=== PATIENT | female | born 1965 ===

== ENCOUNTER → 2018-09-03 | Outpatient (CLI) | payer OTHER ==
[~2018-09-03] MED LIST: ASCO500T2 PO; CALC500T54 PO; CHOL100013 PO; FERR-36 PO; GABA300C18 PO; MULT1TAB52 PO
--- NOTE | 2018-09-04 04:27 | PAIN ---
DATE OF SERVICE: 09/03/2018 INITIAL CONSULTATION FOR PAIN CLINIC CHIEF COMPLAINT: Neck and left upper extremity pain. SECONDARY COMPLAINT: Low back and bilateral lower extremity pain. HISTORY OF PRESENT ILLNESS: The patient is a 52-year-old female who presents with history of pain since 2014 gradually increasing and getting worse over time, not any specific injury or action that she is aware of specifically, but has had pain in the base of the neck, left upper extremity radiating to the arm and hand with some numbness and tingling with fatigability, becoming more constant, sharp and stabbing over time. The patient reports physical training, participating in organized company exercises have exacerbated the pain over the years as well and in the low back and bilateral lower extremities. The patient reports her chief complaint; however, is the neck and left upper extremity at this time. The patient reports the pain is intermittent and changes during the day with tingling, numbness, radiating, burning, stabbing, constant, becoming more sharp, also disturbs from sleep at least once or twice a night between her neck and her low back. The patient reports no loss of bowel or bladder control, but does affect her ability to walk with the low back pain. She has had physical therapy, which was helpful initially, but not long lasting. She is still doing some stretching and strengthening exercises from the therapy as well. The patient reports no loss of motor function, but significant fatigability. She did have cervical spine MRI showing mild spinal canal stenosis at C6-C7 with eccentric disk bulge to the left with mild flattening of the anterior thecal sac and mild spinal canal stenosis with minimal diffuse disk bulge at C5-C6 as well. Lumbar spine showing disk bulge and desiccation space at L3-L4, L4-L5 and L5-S1, mostly L3-L4 and L4-L5 with bilateral neural foraminal stenosis at L4-L5 and more left-sided L3 abutment of the nerve root at the L3-L4 level. The patient rates her disability rate from 0-10, 10 being the worst as a 5/10 with home responsibilities, 7 with recreation, 2 with social activity, 6 with occupation, 0 with sexual behavior, 5 with self-care, 1 to 2 with life support activities. The patient reports no loss of motor function, but significant fatigability of the left arm and the bilateral lower extremities especially with walking. PAST MEDICAL HISTORY: The patient's past medical history is significant for hearing loss, hearing aids, wears glasses and history of hepatitis A. PREVIOUS SURGERY: Include fractured wrist in 2003 on the right. CURRENT MEDICATIONS: Include multivitamins, calcium, gabapentin, iron sulfate, vitamin D and also vitamin C. ALLERGIES: The patient has no known drug allergies. FAMILY HISTORY: Significant for no major medical problems or conditions that she lifts. SOCIAL HISTORY: The patient does not drink alcohol, does not smoke and does not use any illegal or recreational drugs. She is single. 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 REVIEW OF SYSTEMS: The patient's review of systems is positive for those items mentioned in the history of present illness. All systems reviewed and otherwise negative. It is complete, full and well documented on the patient's chart. PHYSICAL EXAMINATION: VITAL SIGNS: The patient's blood pressure is 118/68, pulse is 71, respirations are 18, temperature is 98.4 degrees Fahrenheit, height is 5 feet 6 inches and weighs 184 pounds. GENERAL: The patient is awake, alert, oriented, appropriate, very pleasant demeanor. HEENT: Head shows normocephalic and atraumatic. Extraocular movements are intact and symmetrical. Oral cavity: Mucous membranes are moist and pink. Dentition is intact. NECK: Shows anterior throat is supple without palpable lymphadenopathy noted. Swallow reflex is symmetrical. CHEST: Shows normal on inspection. Breath sounds are clear to auscultation bilaterally. HEART: Shows S1 and S2 clear. No murmurs are auscultated. ABDOMEN: Soft, nontender and nondistended. No palpable organomegaly is noted. No rebound or guarding demonstrated. MUSCULOSKELETAL: Back shows spine grossly in the midline. Normal appearing thoracic kyphosis, cervical lordotic curvature and thoracic and lumbar lordotic curvature. Cervical paraspinous muscle shows symmetrical on inspection. On palpation shows some moderate tenderness diffusely in the inferior aspect of the cervical paraspinous muscle on the left greater than right, also into the superior medial trapezius, but without trigger points and without radiation. The patient has good rotational motion of the cervical spine both laterally greater than 45 degrees closer to 90 degrees right and left as well as full extension, full forward flexion without significant pain reported. The patient's upper extremities show deep tendon reflexes at 2+ in the biceps and triceps tendons and are equal. Motor exam shows 5/5 timber feller strength, bicep and tricep flexion and equal bilaterally. The patient's low back shows lumbar paraspinous muscles symmetrical on inspection. On palpation shows some mild diffuse tenderness throughout the upper, middle, lower distribution of the paraspinous muscles bilaterally, but only diffusely without radiation, without trigger points, without atrophy or hypertrophy. The patient's lower extremities show deep tendon reflexes 1+ in the patellar and tendo-calcaneus tendons. Motor exam is strong with 5/5 dorsiflexion and extension. Straight leg raising is noted to be negative bilaterally. Peripheral pulses are 1+ posterior tibia. No peripheral edema is noted. 2+ radial without edema. She is able to stand, stand on her toes, walks without difficulty without any assistive devices. SKIN: The patient's skin shows warm and dry, good turgor. No edema. No sores, rashes or bruising throughout. IMPRESSION: 1. This is a 52-year-old female with a long history approximately 4 years, pain in the base of the neck, shoulder and left upper extremity in a radicular fashion. 2. Low back pain with bilateral lumbar radicular symptoms. 3. MRI scan of the cervical and lumbar spines as noted. PLAN: Options were discussed with the patient including conservative medical management, physical therapy and interventional techniques. She would like to pursue interventional techniques as she is doing physical therapy, stretching and strengthening on her own without significant long-term improvement. We discussed a cervical epidural steroid injection using description as well as anatomical models to describe the procedure. The patient will wait for preauthorization with her insurance provider. We have her return for cervical epidural steroid injection later this week. In the meantime, the patient will continue with strengthening and stretching exercises as normal and will have her followup as scheduled. GUI MCDONALD MD DR: KEVIN/ga JOB#: [id number] / [id number]
== END | disposition home or self-care (01) ==
LOC: PNCL 13:36
PROVIDERS: ATTEND Anesthesiology
DX: M54.2 Cervicalgia (principal); M54.5 Low back pain; M25.512 Pain in left shoulder; M79.604 Pain in right leg; M79.605 Pain in left leg
CPT/HCPCS: G0463

== ENCOUNTER → 2018-09-06 | Outpatient (CLI) | payer OTHER ==
[~2018-09-06] MED LIST changes: +IOHEXOL 180 MG/ML 10 ML VIAL. ONE; +methylPREDNISolone ACETATE 40 MG/ML VIAL. ONE; +methylPREDNISolone ACETATE 80 MG/ML VIAL. ONE
--- NOTE | 2018-09-07 03:51 | PAIN ---
DATE OF SERVICE: 09/06/2018 DIAGNOSES: 1. Cervical radiculopathy with cervical degenerative disk disease. 2. Lumbar radiculopathy with lumbar degenerative disk disease. HISTORY OF PRESENT ILLNESS: The patient is a 52-year-old female who returns for followup status post initial evaluation and preauthorization for cervical epidural steroid injection. The patient reports still significant pain in the base of the neck and left upper extremity as it was previously, unchanged from evaluation a few days previous. The patient is waiting for preauthorization. She has obtained this now and would like to proceed with cervical epidural steroid injection. The patient reports the pain is a 10 on a scale of 10 at its worst, 7-10 on average and is 5 at its least and is a 7 today. The patient reports no new motor or sensory deficits. No new changes or other findings. PHYSICAL EXAMINATION: VITAL SIGNS: The patient's blood pressure is 131/70, pulse is 67, respirations are 18, temperature is 98.0 degrees Fahrenheit, height is 5 feet 7 inches, weighs 184 pounds. GENERAL: The patient is awake, alert, oriented, appropriate, very pleasant demeanor. HEENT: Shows normocephalic, atraumatic. Extraocular movements are intact and symmetrical. Oral cavity: Mucous membranes moist and pink. Dentition is intact. NECK: Shows anterior throat supple without palpable lymphadenopathy noted. Swallow reflex is symmetrical. CHEST: Shows normal on inspection. Breath sounds are clear to auscultation bilaterally. HEART: Shows S1, S2 clear. ABDOMEN: Soft, nontender, nondistended. BACK: Shows spine grossly in the midline. Cervical paraspinous muscle shows symmetrical on inspection. With palpation shows some [id number] tenderness in the inferior aspect of the cervical paraspinous musculature, slightly more on the left trapezius, superior medial than the right. The patient has good rotational motion of cervical spine both laterally greater than 45 degrees, closer to 90 degrees right and left lateral as well as full extension, full forward flexion without significant pain reported. EXTREMITIES: The patient's upper extremities show deep tendon reflexes at 2+ in the biceps and triceps tendons. Motor exam is strong with 5/5 business account specialist strength, bicep and tricep flexion. Peripheral pulses are 1+ posterior tibia. No peripheral edema is noted. Options were discussed with the patient. The patient's old chart was reviewed as was her current medication regimen updated. Current review of systems is updated today as well. We will proceed with a cervical epidural steroid injection today with fluoroscopic guidance. Risks were again discussed including, but not limited to bleeding, infection, possibility of epidural hematoma, subsequent neurologic compromise, dural puncture, headaches, spinal cord and/or nerve damage, side effects of steroid medication and poor results regarding pain control. The patient understands and wished to proceed. The patient will return to the clinic in approximately 2 weeks for followup, was counseled on return appointment, activity level and side effects to be aware of. DIAGNOSES: Cervical radiculopathy with cervical degenerative disk disease. PROCEDURE: Cervical epidural steroid injection, translaminar approach at C6-C7 level using C-arm fluoroscopic guidance under sterile prep and drape using local anesthetic. MEDICATION INJECTED: A total of 120 mg Depo-Medrol plus 5 mL of preservative-free normal saline, and 2 mL of Isovue for contrast. CONDITION AT DISCHARGE: Stable. The patient tolerated procedure well, had no complications. GUI MCDONALD MD DR: KEVIN/ga JOB#: [id number] / [id number]
== END | disposition home or self-care (01) ==
LOC: PNCL 13:11
PROVIDERS: ATTEND Anesthesiology
DX: M50.123 Cervical disc disorder at C6-C7 level with radiculopathy (principal); M51.16 Intervertebral disc disorders with radiculopathy, lumbar region
CPT/HCPCS: 62321; J1030; J1040; Q9965

== ENCOUNTER → 2018-09-28 | Outpatient (CLI) | payer OTHER ==
--- NOTE | 2018-09-29 00:23 | PAIN ---
DATE OF SERVICE: 09/28/2018 DIAGNOSES: 1. Cervical radiculopathy with cervical degenerative disk disease. 2. Lumbar radiculopathy with lumbar degenerative disk disease. HISTORY OF PRESENT ILLNESS: The patient is a 52-year-old female who returns for followup status post cervical epidural steroid injection x 1. The patient reports about a near 100% improvement from the first week and then in the next week the pain began to return slightly, but still about 75-80% improvement overall in the base of the neck and shoulders, again some pain in the left upper extremity, but very minimal compared to what it was previously. The patient reports he has been sleeping better at night, increasing her activity, lifting arms, working out. General movement was improved significantly since her injection. The patient reports her pain is an 8 on a scale of 10 at its worst, 4 on average, 4 at its least and is 4 today. The patient reports it is aching and becoming more constant and noticeable with time and with activity. The patient reports no new motor or sensory deficits or other complaints. PHYSICAL EXAMINATION: VITAL SIGNS: The patient's blood pressure is 115/76, pulse 84, respirations 16, temperature is 98.2 degrees Fahrenheit, weight is 183 pounds. GENERAL: The patient is awake, alert, oriented, appropriate, very pleasant demeanor. HEENT: Head is normocephalic and atraumatic. Extraocular muscles are intact and symmetrical. Oral cavity, mucous membranes are moist and pink. Dentition is intact. NECK: Shows anterior throat supple without palpable lymphadenopathy noted. Swallow reflex is symmetrical. CHEST: Shows normal with inspection. Breath sounds clear to auscultation bilaterally. HEART: Shows S1, S2 clear. No murmurs auscultated. ABDOMEN: Soft, nontender, nondistended. No palpable organomegaly is noted. No rebound or guarding demonstrated. BACK: Shows spine grossly in the midline. Cervical paraspinous muscle shows symmetrical on inspection; on palpation she has some moderate tenderness diffusely, but only diffusely without significant radiation. The patient has good rotational motion of cervical spine, both laterally as well as extension and flexion without significant difficulty. EXTREMITIES: The patient's upper extremities show deep tendon reflexes 2+ in the biceps and triceps tendons. Motor exam is strong with locomotive mechanic strength rated 5/5, biceps and triceps flexion equal. Peripheral pulses are 2+ in radial distribution. No peripheral edema is noted bilaterally. Options were discussed with the patient. The patient's old chart was reviewed as was her current medication regimen updated. Current review of systems updated today as well. We will proceed with a second cervical epidural steroid injection today with fluoroscopic guidance. Risks were again discussed including, but not limited to bleeding, infection, possibility of epidural hematoma, subsequent neurologic compromise, dural puncture, headaches, spinal cord and/or nerve damage, side effects of steroid medication and poor results regarding pain control. The patient understands and wished to proceed. The patient will return to clinic in approximately 2 weeks for followup. She was counseled as to return appointment, activity level and side effects to be aware of. DIAGNOSES: Cervical radiculopathy with cervical degenerative disk disease. PROCEDURE: Cervical epidural steroid injection, translaminar approach at the C6-C7 level using C-arm fluoroscopic guidance under sterile prep and drape using local anesthetic. MEDICATION INJECTED: A total of 120 mg Depo-Medrol plus 5 mL of preservative-free normal saline and 2 mL of Isovue for contrast. CONDITION AT DISCHARGE: Stable. The patient tolerated the procedure well, had no complications. GUI MCDONALD MD DR: KEVIN/ga JOB#: [id number] / [id number]
== END | disposition home or self-care (01) ==
LOC: PNCL 10:27
PROVIDERS: ATTEND Anesthesiology
DX: M50.123 Cervical disc disorder at C6-C7 level with radiculopathy (principal); M51.16 Intervertebral disc disorders with radiculopathy, lumbar region
CPT/HCPCS: 62321; J1030; J1040; Q9965